=== PATIENT | male | born 1955 | race Caucasian/White ===

== ENCOUNTER 2023-01-29 05:21 | Inpatient (IN) | payer MEDICARE, OTHER ==
[~2023-01-29] VITALS: Ht 175.3 cm; Wt 100.2 kg
--- NOTE | 2023-01-29 05:50 | NUR ---
[id number]. WOKE DIZZY - ROOM SPINNING +NAUSEA, +VOMMITING. AXO3 AMBULATORY. EMESIS BAG PROVIDED. SAFETY MEASURES IN PLACE.
[2023-01-29] MEDS ORDERED: ONDANSETRON HCL/PF 4 MG/2 ML VIAL ONE (06:22)
[2023-01-29] MEDS ORDERED: MECLIZINE HCL 25 MG TABLET ONE ×2 (06:22→08:31)
[2023-01-29] MEDS ORDERED: IV NS 0.9% 1,000 ML BAG IV ONE (06:30)
[2023-01-29] MEDS ORDERED: ONDANSETRON HCL/PF 4 MG/2 ML VIAL IVP ONE (06:30)
[2023-01-29] MEDS ORDERED: MECLIZINE HCL 25 MG TABLET PO ONE ×2 (06:30→08:30)
[2023-01-29 06:57] LABS: BASOPHILS % (AUTO) 0.5 % (0.0-2.0); EOSINOPHILS % (AUTO) 1.8 % (0.0-6.0); HEMATOCRIT 37 % (39-51); HEMOGLOBIN 12.3 g/dL (13.5-17.5); LYMPHOCYTES # (AUTO) 1.8 K/uL (0.8-4.8); MEAN CORPUSCULAR HGB CONC 34 g/dl (31.0-36.0); MEAN CORPUSCULAR VOLUME 92 fL (80-96); MONOCYTES # (AUTO) 0.7 K/uL (0.1-1.30); MONOCYTES % (AUTO) 6.6 % (2.0-12.0); NEUTROPHILS # (AUTO) 7.4 K/uL (1.8-8.9); NEUTROPHILS % (AUTO) 73.1 % (43.0-81.0); PLATELET COUNT (AUTO) 226 K/uL (150-450); RED BLOOD CELL COUNT(AUTO) 3.98 MIL/uL (4.5-6.0); WHITE BLOOD COUNT (AUTO) 10.1 K/uL (4.3-11.0)
[2023-01-29] MEDS ORDERED: METOCLOPRAMIDE HCL 10 MG/2 ML VIAL IV ONE (07:30)
[2023-01-29] MEDS ORDERED: diphenhydrAMINE HCL 50 MG/ML VIAL IV ONE (07:30)
[2023-01-29] MEDS ORDERED: diphenhydrAMINE HCL 50 MG/ML VIAL ONE (07:34)
[2023-01-29] MEDS ORDERED: METOCLOPRAMIDE HCL 10 MG/2 ML VIAL ONE (07:34)
--- NOTE | 2023-01-29 07:53 | NUR ---
pt asleep at bedside. put on monitor and pulse
[2023-01-29] MEDS ORDERED: LORAZEPAM INJ 2 MG/ML VIAL ONE (09:23)
[2023-01-29] MEDS ORDERED: LORAZEPAM INJ 2 MG/ML VIAL IV ONE (09:30)
[2023-01-29 09:38] LABS: ALANINE AMINOTRANSFERASE 50 U/L (12-78); ALBUMIN 4.1 g/dL (3.4-5.0); ALKALINE PHOSPHATASE 53 U/L (46-116); ASPARTATE AMINOTRANSFERASE 39 U/L (15-37); BILIRUBIN,DIRECT 0.1 mg/dL (0.0-0.2); BILIRUBIN,TOTAL 0.5 mg/dL (0.2-1.0); CALCIUM, SERUM 9.3 mg/dL (8.5-10.1); CARBON DIOXIDE 28 mmol/L (21-32); CHLORIDE 106 mmol/L (98-107); CREATININE 1.8 mg/dL (0.6-1.3); GLUCOSE 144 mg/dL (74-106); POTASSIUM 3.8 mmol/L (3.5-5.1); SODIUM SERUM 142 mmol/L (136-145); TOTAL PROTEIN, SERUM 6.8 g/dL (6.4-8.2); UREA NITROGEN, BLOOD 24 mg/dL (7-18)
--- NOTE | 2023-01-29 10:15 | NUR ---
DR TOLENTINO AT BEDSIDE FOR EVAL. AWAITING FOR ORDERS
[2023-01-29] MEDS ORDERED: MECLIZINE HCL 12.5 MG TABLET PO ONE (10:30)
--- NOTE | 2023-01-29 10:35 | NUR ---
covid swab sent to lab by PEACE QUINONES
[2023-01-29] MEDS ORDERED: MECLIZINE HCL 12.5 MG TABLET ONE (10:40)
[2023-01-29] MEDS ORDERED: ACETAMINOPHEN 325 MG TABLET PO PRN (11:00)
[2023-01-29] MEDS ORDERED: EVOL140P3 SQ (11:10)
[2023-01-29] MEDS ORDERED: ACAR50TA4 PO (11:10)
[2023-01-29] MEDS ORDERED: UBID100C13 PO (11:10)
[2023-01-29] MEDS ORDERED: TAMS-12 PO (11:10)
[2023-01-29] MEDS ORDERED: FOLI0.4T6 PO (11:10)
[2023-01-29] MEDS ORDERED: ERGO500040 PO (11:10)
[2023-01-29] MEDS ORDERED: LABE200T5 PO (11:10)
[2023-01-29] MEDS ORDERED: ALLO300T2 PO (11:10)
[2023-01-29] MEDS ORDERED: ICOS1CAP PO (11:10)
[2023-01-29] MEDS ORDERED: METH2.5T PO (11:10)
[2023-01-29] MEDS ORDERED: DULO60CA64 PO (11:10)
[2023-01-29] MEDS ORDERED: LEVO5TAB29 PO (11:10)
--- NOTE | 2023-01-29 11:14 | NUR ---
MRSA SWAB COLLECTED & BELONGINGS LOGGED.
--- NOTE | 2023-01-29 11:49 | NUR ---
GOT BED 114-1 ADMITTING INFORMED.
--- NOTE | 2023-01-29 11:57 | NUR ---
PT TO [facility]. REPORT GIVEN TO NATALEE FOR CONTINUE OF CARE
[2023-01-29 12:21] VITALS: BP 140/84
--- NOTE | 2023-01-29 12:30 | NUR ---
LOAN SERVICING REPRESENTATIVE NOTE PT ALERT AND ORIENTED X4. VERBALLY RESPONSIVE AND ABLE TO MAKE NEEDS KNOWN. FAMILY AT BEDSIDE. PT HAS LEFT AC 20 GUAGE. IV INTACT, PATENT AND FLUSHING WELL. PT ON ROOM AIR TOLERATING AT 96%. ALL SAFETY MEASURES IN PLACE. CALL LIGHT WITHIN REACH. BED LOCKED AT LOWEST POSITION. SIDE RAILS UP X2. BED ALARM ON
[2023-01-29] MEDS: PANTOPRAZOLE 40 MG VIAL IV SCH (13:22)
[2023-01-29] MEDS: ENOXAPARIN SODIUM 40 MG/0.4 ML DISP.SYRIN SQ SCH (13:24)
[2023-01-29] MEDS: IV NS 0.9% 1,000 ML IV PRN (13:25)
[2023-01-29] MEDS: ONDANSETRON HCL/PF 4 MG/2 ML VIAL IVP PRN ×2 (17:06→21:19)
[2023-01-29 18:21] VITALS: BP 155/64
--- NOTE | 2023-01-29 19:32 | NUR ---
RN CLOSING NOTE PT ALERT AND ORIENTED X4. VERBALLY RESPONSIVE AND ABLE TO MAKE NEEDS KNOWN. FAMILY AT BEDSIDE. PT HAS LEFT AC 20 GAUGE. IV INTACT, PATENT AND FLUSHING WELL. PT ON ROOM AIR TOLERATING ABOVE 93%. ALL SAFETY MEASURES IN PLACE. CALL LIGHT WITHIN REACH. BED LOCKED AT LOWEST POSITION. SIDE RAILS UP X2. BED ALARM ON
[2023-01-29 20:00] VITALS: BP 167/110
[2023-01-29] MEDS: MECLIZINE HCL 12.5 MG TABLET PO PRN (20:15)
--- NOTE | 2023-01-29 21:30 | NUR ---
RN NOTES Patient uses CPAP at home. Notified ERNIE Matson; order obtained to use same home setting. RT Filiberto made aware. Update pt and family at bedside
[2023-01-29] MEDS ORDERED: Medication Not On Formulary EA (Evolocumab (Repatha Sureclick) 140 MG) SQ SCH (23:30)
--- NOTE | 2023-01-30 00:04 | NUR ---
PT PLACED ON NOC CPAP. MATCHED HOME CPAP SETTINGS ORDERED. TOLERATING WELL.
[2023-01-30] MEDS: DULOXETINE HCL 30 MG CAPSULE.DR PO SCH ×2 (00:20→21:08)
[2023-01-30] MEDS: LABETALOL HCL (100MG) 100 MG TABLET PO SCH ×3 (00:21→20:59)
[2023-01-30 04:00] VITALS: BP 153/93
[2023-01-30] MEDS ORDERED: MECLIZINE HCL 25 MG TABLET ONE (05:14)
[2023-01-30] MEDS: MECLIZINE HCL 12.5 MG TABLET PO PRN ×3 (05:19→18:03)
[2023-01-30] MEDS: ONDANSETRON HCL/PF 4 MG/2 ML VIAL IVP PRN ×3 (05:20→18:03)
[2023-01-30 06:45] LABS: BASOPHILS % (AUTO) 0.3 % (0.0-2.0); EOSINOPHILS % (AUTO) 1.4 % (0.0-6.0); HEMATOCRIT 38 % (39-51); HEMOGLOBIN 12.9 g/dL (13.5-17.5); LYMPHOCYTES # (AUTO) 2.3 K/uL (0.8-4.8); LYMPHOCYTES % (AUTO) 22.8 % (20.0-44.0); MEAN CORPUSCULAR HGB CONC 34 g/dl (31.0-36.0); MEAN CORPUSCULAR VOLUME 92 fL (80-96); MONOCYTES # (AUTO) 0.8 K/uL (0.1-1.30); NEUTROPHILS # (AUTO) 6.7 K/uL (1.8-8.9); NEUTROPHILS % (AUTO) 67.5 % (43.0-81.0); PLATELET COUNT (AUTO) 232 K/uL (150-450); RED BLOOD CELL COUNT(AUTO) 4.11 MIL/uL (4.5-6.0)
[2023-01-30 07:06] LABS: CALCIUM, SERUM 8.9 mg/dL (8.5-10.1); CREATININE 1.3 mg/dL (0.6-1.3); MAGNESIUM 2.1 mg/dL (1.8-2.4); PHOSPHORUS 3.1 mg/dL (2.5-4.9); POTASSIUM 3.8 mmol/L (3.5-5.1)
[2023-01-30 08:00] VITALS: BP 166/96
[2023-01-30] MEDS: PANTOPRAZOLE 40 MG VIAL IV SCH (08:12)
[2023-01-30] MEDS: TAMSULOSIN 0.4 MG CAP.SR.24H PO SCH (08:12)
[2023-01-30] MEDS: ALLOPURINOL 100 MG TABLET PO SCH (08:12)
[2023-01-30] MEDS: ACARBOSE 50 MG TABLET PO SCH ×3 (08:12→18:00)
[2023-01-30] MEDS: FOLIC ACID 1 MG TABLET PO SCH (08:12)
[2023-01-30] MEDS ORDERED: ERGOCALCIFEROL (VITAMIN D 2) 50,000 UNIT CAPSULE PO SCH (09:00)
[2023-01-30] MEDS ORDERED: Medication Not On Formulary EA (Icosapent Ethyl (Vascepa) 2 GM) PO SCH (09:00)
--- NOTE | 2023-01-30 10:12 | NUR ---
"ORTHOSTATIC VS SUPINE BP 148/71 | [place] 68 SITTING BP 132/82 | [place] 69 STANDING BP 151/82 | [place]"
[2023-01-30] MEDS: IV NS 0.9% 1,000 ML IV PRN (12:03)
[2023-01-30] MEDS: ENOXAPARIN SODIUM 40 MG/0.4 ML DISP.SYRIN SQ SCH (12:13)
[2023-01-30 16:00] VITALS: BP 168/84
[2023-01-30] MEDS: METHOTREXATE SODIUM (2.5MG) 2.5 MG TABLET PO SCH ×2 (18:00→18:03)
--- NOTE | 2023-01-30 18:29 | NUR ---
END OF SHIFT SUMMARY PATIENT IS A/O X4. SATURATING WELL ON RA. ABLE TO MAKE NEEDS KNOWN. AMBULATORY WITH SBA. TOLERATING DIET WELL. IV ACCESS ON L HAND #22 G, NS RUNNING AT 75 ML/HR. CONTINENT, USES URINAL. ZOFRAN AND MECLIZINE GIVEN. REPOSITIONS HIMSELF INDEPENDENTLY. FALL PRECAUTIONS MAINTAINED AT ALL TIMES. SAFETY MEASURES MAINTAINED. BED IN LOWEST POSITION, BRAKES LOCKED. SIDE RAILS UP X2. CALL LIGHT WITHIN REACH. WILL ENDORSE CONTINUITY OF CARE TO ONCOMING SHIFT.
--- NOTE | 2023-01-30 18:42 | NUR ---
SPOKE WITH ESTER QUINONES AND ORDERED DIAZEPAM 2 MG ONCE
--- NOTE | 2023-01-30 19:45 | NUR ---
RN OPENING NOTES: RECEIVED PT IN BED, AWAKE, ALERT/ORIENTED X4 AND VERBALLY RESPONSIVE. ON ROOM AIR AND PT TOLERATED WELL. IV ACCESS ON L HAND #22 G INTACT AND PATENT. NO S/S OF INFILTRATIONS. NS RUNNING AT 75 ML/HR. NO C/O PAIN OR DISCOMFORT. NO ACUTE DISTRESS. CONTINENT ON BOWEL AND BLADDER. ABLE TO USE URINAL. AT BEDSIDE.ALL SAFETY MEASURES IN PLACE. BED IN LOWEST POSITION AND LOCKED. SIDE RAILS UP X2. PLACE CALL LIGHT WITHIN REACH. WILL CONTINUE TO MONITOR.
[2023-01-30 20:00] VITALS: BP 173/89
[2023-01-30] MEDS ORDERED: DIAZEPAM 2 MG TABLET PO ONE (20:00)
[2023-01-30] MEDS ORDERED: Medication Not On Formulary EA (Levocetirizine Dihydrochloride (Xyzal) 5 MG) PO SCH (22:00)
--- NOTE | 2023-01-30 23:35 | NUR ---
PT PLACED ON CPAP. RN NOTIFIED.
[2023-01-31] MEDS: IV NS 0.9% 1,000 ML IV PRN ×2 (03:39→17:48)
[2023-01-31 04:00] VITALS: BP 139/90
--- NOTE | 2023-01-31 06:41 | NUR ---
RN CLOSING NOTES: PT IN BED, AWAKE, ALERT/ORIENTED X4 AND VERBALLY RESPONSIVE. ON ROOM AIR AND PT TOLERATED WELL. O2 SAT 98%. IV ACCESS ON L HAND #22 G INTACT AND PATENT. NO S/S OF INFILTRATIONS. NS RUNNING AT 75 ML/HR. NO C/O PAIN OR DISCOMFORT. NO ACUTE DISTRESS. CONTINENT ON BOWEL AND BLADDER. ABLE TO USE URINAL. AT BEDSIDE. STAYED OVERNIGHT. ALL DUE MEDS GIVEN ORDERED. ALL SAFETY MEASURES IN PLACE. BED IN LOWEST POSITION AND LOCKED. SIDE RAILS UP X2. PLACE CALL LIGHT WITHIN REACH. WILL ENDORSE TO MORNING SHIFT NURSE.
[2023-01-31 07:34] LABS: CALCIUM, SERUM 8.9 mg/dL (8.5-10.1); CREATININE 1.4 mg/dL (0.6-1.3); PHOSPHORUS 3.2 mg/dL (2.5-4.9); POTASSIUM 3.8 mmol/L (3.5-5.1)
[2023-01-31 07:37] LABS: BASOPHILS % (AUTO) 0.4 % (0.0-2.0); EOSINOPHILS % (AUTO) 2.2 % (0.0-6.0); HEMATOCRIT 37 % (39-51); HEMOGLOBIN 12.6 g/dL (13.5-17.5); LYMPHOCYTES # (AUTO) 2.4 K/uL (0.8-4.8); LYMPHOCYTES % (AUTO) 26.4 % (20.0-44.0); MEAN CORPUSCULAR HGB CONC 34 g/dl (31.0-36.0); MEAN CORPUSCULAR VOLUME 92 fL (80-96); MONOCYTES # (AUTO) 0.8 K/uL (0.1-1.30); MONOCYTES % (AUTO) 8.6 % (2.0-12.0); NEUTROPHILS # (AUTO) 5.6 K/uL (1.8-8.9); NEUTROPHILS % (AUTO) 62.4 % (43.0-81.0); PLATELET COUNT (AUTO) 235 K/uL (150-450); RED BLOOD CELL COUNT(AUTO) 4.05 MIL/uL (4.5-6.0)
[2023-01-31 07:41] LABS: BILIRUBIN,URINE NEGATIVE (NEGATIVE); COLOR,URINE YELLOW (YELLOW); LEUKOCYTE ESTERASE ,URINE NEGATIVE (NEGATIVE); NITRITE, URINE NEGATIVE (NEGATIVE); PH,URINE 6.5 (5.0-8.0); PROTEIN,URINE NEGATIVE (NEGATIVE); UGLUCOSE NEGATIVE (NEGATIVE); UROBILINOGEN,URINE 0.2 EU/dL (0.2)
[2023-01-31 08:00] VITALS: BP_SYST 157; BP_SYST 168; BP_SYST 181; BP_DIAS 90; BP_DIAS 94; BP_DIAS 98
[2023-01-31] MEDS: TAMSULOSIN 0.4 MG CAP.SR.24H PO SCH (08:07)
[2023-01-31] MEDS: LABETALOL HCL (100MG) 100 MG TABLET PO SCH ×2 (08:07→21:15)
[2023-01-31] MEDS: ALLOPURINOL 100 MG TABLET PO SCH (08:08)
[2023-01-31] MEDS: PANTOPRAZOLE 40 MG TABLET.DR PO SCH (08:08)
[2023-01-31] MEDS: ACARBOSE 50 MG TABLET PO SCH ×3 (08:08→14:37)
[2023-01-31] MEDS: ONDANSETRON HCL/PF 4 MG/2 ML VIAL IVP PRN ×2 (08:08→14:41)
[2023-01-31] MEDS: FOLIC ACID 1 MG TABLET PO SCH (08:08)
[2023-01-31 08:37] LABS: BACTERIA,URINE None seen /HPF (None Seen); RBC,URINE 0-2 /HPF (0-2); SQUAMOUS EPITHELIAL CELL,UR Rare /HPF (None Seen); WBC,URINE 0-2 /HPF (0-3)
--- NOTE | 2023-01-31 08:51 | NUR ---
RN NOTE CONTINUITY GIVEN TO JONI KAUFMAN AT THIS TIME.
--- NOTE | 2023-01-31 08:59 | NUR ---
MS RN note Received handover from JONI Luke. Patient is alert and oriented, GCS [id number]. Complained nausea and dizziness but otherwise fine. Left hand #22 is dry and intact, with NS running at 75ml/hr. Call breaux is placed within reach. Bed is locked and placed in the lowest position. Will continue monitoring and care.
[2023-01-31] MEDS ORDERED: DIAZEPAM 2 MG TABLET PO ONE (10:30)
--- NOTE | 2023-01-31 10:30 | NUR ---
MS RN Note Rechecked BP as it was high earlier. 156/69mmHg, not for IV hydralazine for BP management. Keep observation.
[2023-01-31] MEDS: ENOXAPARIN SODIUM 40 MG/0.4 ML DISP.SYRIN SQ SCH (10:39)
[2023-01-31 10:56] VITALS: BP 156/69
[2023-01-31] MEDS ORDERED: hydrALAZINE HCL IV 20 MG VIAL IV PRN (11:00)
[2023-01-31] MEDS: MECLIZINE HCL 12.5 MG TABLET PO PRN ×2 (11:07→17:42)
[2023-01-31] MEDS: methylPREDNISolone SOD SUCC 40 MG/ML VIAL IV SCH (14:24)
[2023-01-31 16:00] VITALS: BP 157/68
--- NOTE | 2023-01-31 16:00 | NUR ---
MS RN Note Bp 169/96mmHg, rechecked BP, it was 157/86mmHg. Keep observation.
--- NOTE | 2023-01-31 19:35 | NUR ---
RN OPENING NOTES: RECEIVED PT IN BED, AWAKE, ALERT/ORIENTED X4 AND VERBALLY RESPONSIVE. ON ROOM AIR AND PT TOLERATED WELL. IV ACCESS ON LT HAND #22 G INTACT AND PATENT. NO S/S OF INFILTRATIONS. NS RUNNING AT 75 ML/HR. NO C/O PAIN OR DISCOMFORT. NO ACUTE DISTRESS. CONTINENT ON BOWEL AND BLADDER. ABLE TO USE URINAL. AT BEDSIDE. WILL STAY ALL NIGHT. ALL SAFETY MEASURES IN PLACE. BED IN LOWEST POSITION AND LOCKED. SIDE RAILS UP X2. PLACE CALL LIGHT WITHIN REACH. WILL CONTINUE TO MONITOR.
[2023-01-31 20:00] VITALS: BP 168/90
[2023-01-31] MEDS: DULOXETINE HCL 30 MG CAPSULE.DR PO SCH (21:14)
[2023-02-01 04:00] VITALS: BP 154/90
--- NOTE | 2023-02-01 06:38 | NUR ---
RN CLOSING NOTES: PT IN BED, AWAKE, ALERT/ORIENTED X4 AND VERBALLY RESPONSIVE. ON ROOM AIR AND PT TOLERATED WELL. O2 SAT 99%. IV ACCESS ON L HAND #22 G INTACT AND PATENT. NO S/S OF INFILTRATIONS. NS RUNNING AT 75 ML/HR. NO C/O PAIN OR DISCOMFORT. NO ACUTE DISTRESS. CONTINENT ON BOWEL AND BLADDER. AT BEDSIDE. STAYED OVERNIGHT. ALL DUE MEDS GIVEN ORDERED. ALL SAFETY MEASURES IN PLACE. BED IN LOWEST POSITION AND LOCKED. SIDE RAILS UP X2. PLACE CALL LIGHT WITHIN REACH. WILL ENDORSE TO MORNING SHIFT NURSE.
--- NOTE | 2023-02-01 07:10 | NUR ---
PASTING MACHINE OPERATOR NOTES Received pt asleep in bed AOX4. No signs of pain or discomfort at this time. Pt is currently on RA and tolerating it well. IV access on left hand 20G running IVF NS @75 cc/hr. HOB elevated to pts comfort. Siderails up at all times 2. Call light within reach. Will continue to monitor.
[2023-02-01] MEDS: IV NS 0.9% 1,000 ML IV PRN ×2 (07:44→21:58)
[2023-02-01 08:00] VITALS: BP 167/99
[2023-02-01] MEDS: PANTOPRAZOLE 40 MG TABLET.DR PO SCH (08:24)
[2023-02-01] MEDS: FOLIC ACID 1 MG TABLET PO SCH (08:24)
[2023-02-01] MEDS: TAMSULOSIN 0.4 MG CAP.SR.24H PO SCH (08:24)
[2023-02-01] MEDS: LABETALOL HCL (100MG) 100 MG TABLET PO SCH ×2 (08:24→21:24)
[2023-02-01] MEDS: ALLOPURINOL 100 MG TABLET PO SCH (08:24)
[2023-02-01] MEDS: ACARBOSE 50 MG TABLET PO SCH ×4 (08:25→18:00)
[2023-02-01] MEDS: methylPREDNISolone SOD SUCC 40 MG/ML VIAL IV SCH (08:26)
[2023-02-01] MEDS: LOSARTAN POTASSIUM 50 MG TABLET PO SCH (09:47)
[2023-02-01] MEDS: ENOXAPARIN SODIUM 40 MG/0.4 ML DISP.SYRIN SQ SCH (10:36)
[2023-02-01] MEDS ORDERED: ALPRAZOLAM 0.25 MG TABLET PO PRN (11:30)
[2023-02-01] MEDS ORDERED: OXYMETAZOLINE HCL NASAL SPRAY 30 ML BOTTLE NS PRN (11:30)
--- NOTE | 2023-02-01 12:25 | NUR ---
MANAGER CLIENT SUPPORT NOTES Pt seen by Physical Therapy and was able to stand and take a few steps. Tolerated PT well with minimal dizziness.
--- NOTE | 2023-02-01 12:43 | NUR ---
PLATINUM AND PALLADIUM KETTLE TENDER NOTES Pt refused Acarbose 50mg. Offered 3x but pt refused. Explained risks and benefits.
--- NOTE | 2023-02-01 13:45 | NUR ---
RECEIVED A CALL FROM [facility] TO INFORM THAT URIEL MAN CANCELLED MRI.
--- NOTE | 2023-02-01 15:29 | NUR ---
PAN CLEANER NOTES Pt was able to walk to the restroom with assistance and stated that he had a BM. Pt also said he's ready to start eating solid foods. MD made aware and diet changed.
[2023-02-01 16:00] VITALS: BP 145/78
[2023-02-01] MEDS: ONDANSETRON HCL/PF 4 MG/2 ML VIAL IVP PRN (17:27)
--- NOTE | 2023-02-01 18:04 | NUR ---
CLIENT SUPPORT ANALYST NOTES Pt refused Acarbose 50mg. Offered 3x but pt refused. Explained risks and benefits. Pt stated it gives him gas and said "I've had enough gas for today."
--- NOTE | 2023-02-01 18:32 | NUR ---
PRINCIPAL DEVELOPER CLOSING NOTES All due meds and tx given as ordered. Pt tolerated everything well. All needs attended to. Pt is currently on RA and tolerating it well. IV access on left hand 20G running IVF NS @75 cc/hr. HOB elevated to pts comfort. Siderails up at all times 2. Call light within reach. Will endorse to oncoming nurse.
--- NOTE | 2023-02-01 19:36 | NUR ---
RN OPENING NOTES: RECEIVED PT IN BED, AWAKE, ALERT/ORIENTED X 4 AND VERBALLY RESPONSIVE. COOPERATIVE WITH CARE. AT BEDSIDE. WILL STAY OVERNIGHT. ON ROOM AIR AND PT TOLERATED WELL. IV ACCESS ON LT HAND #22 G INTACT AND PATENT. NO S/S OF INFILTRATIONS. NS RUNNING AT 75 ML/HR. NO C/O PAIN OR DISCOMFORT. NO ACUTE DISTRESS. CONTINENT ON BOWEL AND BLADDER. ABLE TO GO TO RESTROOM WITH ASSIST. ALL SAFETY MEASURES IN PLACE. BED IN LOWEST POSITION AND LOCKED. SIDE RAILS UP X2. PLACE CALL LIGHT WITHIN REACH. WILL CONTINUE TO MONITOR.
[2023-02-01 20:00] VITALS: BP 154/86
[2023-02-01] MEDS: DULOXETINE HCL 30 MG CAPSULE.DR PO SCH (21:25)
[2023-02-01] MEDS ORDERED: MECLIZINE HCL 12.5 MG TABLET ONE (22:44)
[2023-02-01] MEDS: MECLIZINE HCL 12.5 MG TABLET PO PRN (22:46)
--- NOTE | 2023-02-01 22:47 | NUR ---
RN NOTES: PT C/O DIZZINESS, NAUSEA. ANTIVERT GIVEN PRN ORDERED AND PT TOLERATED WELL. WILL CONTINUE TO MONITOR
--- NOTE | 2023-02-02 00:05 | NUR ---
pt refusing bipap noc at this time. complaining of nausea Addendum: 02/02/23 at 0032 by MAVERICK DUKE Amended: Links added.
[2023-02-02 04:00] VITALS: BP 153/87
--- NOTE | 2023-02-02 06:45 | NUR ---
RN CLOSING NOTES: PT IN BED, AWAKE, ALERT/ORIENTED X4 AND VERBALLY RESPONSIVE. ON ROOM AIR AND PT TOLERATED WELL. O2 SAT 98%. IV ACCESS ON L HAND #22 G INTACT AND PATENT. NO S/S OF INFILTRATIONS. NS RUNNING AT 75 ML/HR. NO C/O PAIN OR DISCOMFORT. NO ACUTE DISTRESS. CONTINENT ON BOWEL AND BLADDER. STILL AT BEDSIDE. STAYED OVERNIGHT. ALL DUE MEDS GIVEN ORDERED. ALL SAFETY MEASURES IN PLACE. BED IN LOWEST POSITION AND LOCKED. SIDE RAILS UP X2. PLACE CALL LIGHT WITHIN REACH. WILL ENDORSE TO MORNING SHIFT NURSE.
--- NOTE | 2023-02-02 07:30 | NUR ---
OPENING NOTE RECEIVED PATIENT RESTING IN BED COMFORTABLY BUT AROUSABLE, NO SIGNS OF IN DISTRESS, SAFETY MEASURES IN PLACED, BED IN LOW POSITION LOCKED, SIDE RAILS UPX3, CALL LIGHT WITHIN REACHED.
[2023-02-02 08:00] VITALS: BP 168/99
[2023-02-02] MEDS: TAMSULOSIN 0.4 MG CAP.SR.24H PO SCH (08:32)
[2023-02-02] MEDS: FOLIC ACID 1 MG TABLET PO SCH (08:32)
[2023-02-02] MEDS: ACARBOSE 50 MG TABLET PO SCH ×3 (08:32→17:10)
[2023-02-02] MEDS: PANTOPRAZOLE 40 MG TABLET.DR PO SCH (08:33)
[2023-02-02] MEDS: LABETALOL HCL (100MG) 100 MG TABLET PO SCH ×2 (08:35→20:50)
[2023-02-02] MEDS: LOSARTAN POTASSIUM 50 MG TABLET PO SCH (08:35)
[2023-02-02] MEDS: methylPREDNISolone SOD SUCC 40 MG/ML VIAL IV SCH (08:38)
[2023-02-02] MEDS: ALLOPURINOL 100 MG TABLET PO SCH (08:38)
[2023-02-02] MEDS: LORATADINE 10 MG TABLET PO SCH (08:42)
[2023-02-02] MEDS ORDERED: ALPRAZOLAM 0.25 MG TABLET PO STA (08:50)
--- NOTE | 2023-02-02 09:15 | NUR ---
WENT TO MRI OF THE BRAIN WITHOUT CONTRAST, XANAX 0.5MG IS GIVEN PRIOR PER ORDER.
[2023-02-02] MEDS ORDERED: ALPRAZOLAM 0.5 MG TABLET PO STA (09:16)
--- NOTE | 2023-02-02 10:00 | NUR ---
CAME BACK FROM MRI, STABLE, NO SIGNS OF IN DISTRESS.
[2023-02-02] MEDS: ENOXAPARIN SODIUM 40 MG/0.4 ML DISP.SYRIN SQ SCH (10:19)
--- NOTE | 2023-02-02 11:09 | NUR ---
PHYSICAL THERAPIST SAW THE PATIENT AND WALKED AROUND THE ROOM.
--- NOTE | 2023-02-02 12:14 | NUR ---
GIVE MRI REPORT TO DR VELASCO.
[2023-02-02 16:00] VITALS: BP 141/92
--- NOTE | 2023-02-02 17:00 | NUR ---
INFORMED DR CRUZ THAT PATIENT AND SPOUSE WANT TO KNOW THE MRI RESULT.
--- NOTE | 2023-02-02 17:24 | NUR ---
DR CRUZ TALKED TO THE PATIENT AND SPOUSE REGARDING MRI RESULT.
--- NOTE | 2023-02-02 18:31 | NUR ---
CLOSING NOTE PATIENT IS AWAKE, ALERT, ORIENTEDX3, RESTING IN BED COMFORTABLY WITH THE AT BEDSIDE, NO SIGNS OF IN DISTRESS, NO COMPLAINTS OF PAIN, UNLABORED BREATHING ON ROOM AIR, SAFETY MEASURES APPLIED, BED IN LOW POSITION LOCKED, SIDE RAILSUPX3, CALL LIGHT WITHIN REACH.
[2023-02-02 20:00] VITALS: BP 141/92
--- NOTE | 2023-02-02 20:04 | NUR ---
RN MS OPENING NOTES RECEIVED PATIENT IN BED,A/O X 4 ON MODERATE HIGH BACK REST POSITION ON BEDREST FOR NOW. ON ROOM AIR SATURATING WELL. NO COMPLAIN OF PAIN OR DISCOMFORT AT THIS TIME. WITH LEFT HAND #20G WITH NS1L AT 75ML/HR INFUSING WELL. NO SOB OR ANY DISTRESS AT THIS TIME.KEPT BED ON LOWER LOCKED POSITION, KEPT SIDE RAILS UP X 2 ALL THE TIME. KEPT CALL LIGHT WITHIN AT REACH. WITH CPAP AT NIGHT. WILL CONTINUE TO MONITOR FOR DONNA.
[2023-02-02] MEDS: DULOXETINE HCL 30 MG CAPSULE.DR PO SCH (21:37)
[2023-02-02] MEDS: ONDANSETRON HCL/PF 4 MG/2 ML VIAL IVP PRN (21:41)
[2023-02-03 04:00] VITALS: BP 138/95
--- NOTE | 2023-02-03 06:21 | NUR ---
RN NOTES PATIENT REFUSED MORNING CARE AND LINEN CHANGE DESPITE OF EXPLANATION. WILL CONTINUE TO MONITOR
--- NOTE | 2023-02-03 06:22 | NUR ---
RN MS CLOSING NOTES PATIENT IS IN BED, AWAKE AND COHERENT. ON MODERATE HIGH BACKREST POSITION. ON ROOM AIR SATURATING WELL. A/O X 4 ABLE TO VERBALIZED CONCERNS. PATIENT TOLERATED CIPAP AT NIGHT WITH AT BEDSIDE FOR ASSISTANCE. AMBULATORY WITH ASSISTANCE. ON REGULAR DIET ABLE TO SWALLOW WHOLE PILL. NO ASPIRATION NOTED. WITH IV ACCESS AT LEFT HAND #20G ON SL PATENT AND INTACT. KEPT BED ON LOWER LOCKED POSITION, KEPT SIDE RAILS X 2 ALL THE TIME. ALL DUE MEDICATIONS GIVEN AND TOLERATED BY THE PATIENT. ALL NEEDS ATTENDED. KEPT CALL LIGHT WITHIN AT REACH. WILL ENDORSED TO AM SHIFT FOR DONNA.
[2023-02-03] MEDS: ACARBOSE 50 MG TABLET PO SCH ×3 (07:37→17:01)
[2023-02-03 08:00] VITALS: BP 147/88
[2023-02-03] MEDS: methylPREDNISolone SOD SUCC 40 MG/ML VIAL IV SCH (08:13)
[2023-02-03] MEDS: PANTOPRAZOLE 40 MG TABLET.DR PO SCH (08:15)
[2023-02-03] MEDS: FOLIC ACID 1 MG TABLET PO SCH (08:16)
[2023-02-03] MEDS: LORATADINE 10 MG TABLET PO SCH (08:16)
[2023-02-03] MEDS: LOSARTAN POTASSIUM 50 MG TABLET PO SCH (08:16)
[2023-02-03] MEDS: TAMSULOSIN 0.4 MG CAP.SR.24H PO SCH (08:16)
[2023-02-03] MEDS: ALLOPURINOL 100 MG TABLET PO SCH (08:16)
[2023-02-03] MEDS: LABETALOL HCL (100MG) 100 MG TABLET PO SCH ×2 (08:17→21:24)
[2023-02-03] MEDS: MECLIZINE HCL 12.5 MG TABLET PO PRN (09:45)
--- NOTE | 2023-02-03 09:45 | NUR ---
MECLIZINE 25MG GIVEN DUE TO VERTIGO.
[2023-02-03] MEDS: ENOXAPARIN SODIUM 40 MG/0.4 ML DISP.SYRIN SQ SCH (10:06)
[2023-02-03] MEDS: MECLIZINE HCL 12.5 MG TABLET PO SCH ×3 (14:01→23:25)
[2023-02-03 16:00] VITALS: BP 142/96
--- NOTE | 2023-02-03 19:30 | NUR ---
OPENING NOTE PATIENT IS AWAKE, ALERT, ORIENTED X 4, RESTING IN BED COMFORTABLY WITH THE AT BEDSIDE, NO SIGNS OF IN DISTRESS, NO COMPLAINTS OF PAIN, UNLABORED BREATHING ON ROOM AIR, SAFETY MEASURES APPLIED, BED IN LOW POSITION LOCKED, SIDE RAILSUPX3, CALL LIGHT WITHIN REACH.
--- NOTE | 2023-02-03 20:22 | NUR ---
PT IS AWAKE AND ALERT I TOLD HIM ABOUT THE BIPAP FOR TONIGHT, PT DOES NOT WANT TO USE IT HE SAID HE'S FINE SLEEPING WITHOUT IT. RN NOTIFIED.
[2023-02-03 21:11] VITALS: BP 149/87
[2023-02-03] MEDS: DULOXETINE HCL 30 MG CAPSULE.DR PO SCH (21:26)
[2023-02-04 05:04] VITALS: BP 146/91
--- NOTE | 2023-02-04 05:46 | NUR ---
RN NOTE PT REFUSED ANTIVERT AT THIS TIME PER PT " I FEEL FINE RIGHT NOW CAN I ACTUALLY TAKE IT WHEN MY BREAKFAST COMES AROUND 7:30AM' WILL INFORM DAY SHIFT NURSE REGARDING PTS REQUEST.
--- NOTE | 2023-02-04 06:31 | NUR ---
CLOSING NOTE PATIENT IS ASLEEP IN BED EASILY WOKEN UP COMFORTABLY NO SIGNS OF IN DISTRESS, NO COMPLAINTS OF PAIN, UNLABORED BREATHING ON ROOM AIR, NO REPORTS OF N/V DURING SHIFT.SAFETY MEASURES APPLIED, BED IN LOW POSITION LOCKED, SIDE RAILSUPX3, CALL LIGHT WITHIN REACH. WILL ENDORSE CARE TO DAY SHIFT NURSE.
[2023-02-04] MEDS: MECLIZINE HCL 12.5 MG TABLET PO SCH ×2 (07:54→11:55)
[2023-02-04] MEDS: ACARBOSE 50 MG TABLET PO SCH (07:54)
[2023-02-04 08:00] VITALS: BP 147/92
[2023-02-04] MEDS: methylPREDNISolone SOD SUCC 40 MG/ML VIAL IV SCH (09:03)
[2023-02-04] MEDS: PANTOPRAZOLE 40 MG TABLET.DR PO SCH (09:03)
[2023-02-04] MEDS: FOLIC ACID 1 MG TABLET PO SCH (09:03)
[2023-02-04] MEDS: TAMSULOSIN 0.4 MG CAP.SR.24H PO SCH (09:03)
[2023-02-04] MEDS: LORATADINE 10 MG TABLET PO SCH (09:03)
[2023-02-04] MEDS: ALLOPURINOL 100 MG TABLET PO SCH (09:03)
[2023-02-04 09:04] VITALS: BP 147/92
[2023-02-04] MEDS: LABETALOL HCL (100MG) 100 MG TABLET PO SCH (09:04)
[2023-02-04] MEDS: LOSARTAN POTASSIUM 50 MG TABLET PO SCH (09:04)
[2023-02-04] MEDS ORDERED: LEVO5TAB29 PO (11:20)
[2023-02-04] MEDS ORDERED: DIAZ2TAB PO (11:20)
[2023-02-04] MEDS ORDERED: ICOS1CAP PO (11:20)
[2023-02-04] MEDS ORDERED: ACAR50TA4 PO (11:20)
[2023-02-04] MEDS ORDERED: PRED20TA PO (11:20)
[2023-02-04] MEDS ORDERED: UBID100C13 PO (11:20)
[2023-02-04] MEDS ORDERED: DULO60CA64 PO (11:20)
[2023-02-04] MEDS ORDERED: TAMS-12 PO (11:20)
[2023-02-04] MEDS ORDERED: FOLI0.4T6 PO (11:20)
[2023-02-04] MEDS ORDERED: LOSA50TA39 PO (11:20)
[2023-02-04] MEDS ORDERED: MECL-159 PO (11:20)
[2023-02-04] MEDS ORDERED: ALLO300T2 PO (11:20)
[2023-02-04] MEDS ORDERED: LABE200T5 PO (11:20)
[2023-02-04] MEDS ORDERED: LORA10TA7 PO (11:20)
[2023-02-04] MEDS ORDERED: METH4TAB17 PO (11:20)
[2023-02-04] MEDS ORDERED: ONDA4TAB5 PO (11:20)
[2023-02-04] MEDS: ENOXAPARIN SODIUM 40 MG/0.4 ML DISP.SYRIN SQ SCH (11:54)
--- NOTE | 2023-02-04 13:26 | NUR ---
CHILD CARE LEADER NOTE RECEIVED ORDER FOR D/C TO HOME WITH STRONG FAMILY SUPPORT. PT IS AA0X4. ABLE TO MAKE NEEDS KNOWN. STABLE ON ROOM AIR. NO S/S DISTRESS. D/C INTSTRUCTION GIVEN. VERBALIZE UNDERSTANDING, ALL BELONGINGS ACCOUNTED FOR. BELONGING SHEET SIGNED. IV ACCESS REMOVED. CATHERER TIP INTACT. PRESSURE DRESSING APPLIED, ID BAND REMOVED. EXIT CARE. ASSISTED PT IN A WHEELCHAIR TO DAUGHTERS CAR.
== END 2023-02-04 13:18 | disposition home or self-care (01) | DRG 640 ==
LOC: ER 05:32 → MEDSG1 12:16
PROVIDERS: ADMIT Nurse Practitioner Acute Care; ATTEND Nurse Practitioner Acute Care
DX: E86.0 Dehydration (principal); N17.0 Acute kidney failure with tubular necrosis; D68.59 Other primary thrombophilia; J98.11 Atelectasis; H81.4 Vertigo of central origin; H81.10 Benign paroxysmal vertigo, unspecified ear; I16.0 Hypertensive urgency; H81.20 Vestibular neuronitis, unspecified ear; N40.0 Benign prostatic hyperplasia without lower urinary tract symptoms; I11.9 Hypertensive heart disease without heart failure; G47.30 Sleep apnea, unspecified; Z99.89 Dependence on other enabling machines and devices; E66.01 Morbid (severe) obesity due to excess calories; Z68.32 Body mass index [BMI] 32.0-32.9, adult; Z79.899 Other long term (current) drug therapy; H55.00 Unspecified nystagmus; D63.8 Anemia in other chronic diseases classified elsewhere
CPT/HCPCS: 36415; 70450-TC; 70551-TC; 71045-TC; 80048-TC; 80061-TC; 80076-TC; 81001; 82962-TC; 83735-TC; 83880; 84100-TC; 84484-TC; 85025-TC; 87081-TC; 94660; 97110-TC; 97112-TC; 97116-TC; 97530-TC; C9113; C9803; G0378; J1200; J1650; J2060; J2405; J2765; J2920; J7030; J8597; J8610